=== PATIENT | female | born 1975 ===

== ENCOUNTER 2017-03-17 18:37 | Emergency (ER) | payer SELFPAY ==
--- NOTE | 2017-03-17 19:23 | C.PDOC ---
History Of Present Illness A 41 y/o female c/o abdominal pain, nausea, and vomiting that has been worsening over the last 2 days. Pt notes 1 episode of loose stool but denies fever, chills, vaginal bleeding or discharge, hematuria, dysuria, or any other complaints. Time Seen by Provider: 03/17/17 19:22 Chief Complaint (Nursing): Abdominal Pain History Per: Patient History/Exam Limitations: no limitations Onset/Duration Of Symptoms: Days Current Symptoms Are (Timing): Still Present Severity: Mild Pain Scale Rating Of: 4 Location Of Pain/Discomfort: Epigastric Radiation Of Pain To:: None Quality Of Discomfort: Dull, Cramping Associated Symptoms: Diarrhea. denies: Fever, Chills Exacerbating Factors: None Alleviating Factors: None Last Bowel Movement: Today Recent travel outside of the [place]: No Additional History Per: Patient Abnormal Vaginal Bleeding: No Past Medical History Reviewed: Historical Data, Nursing Documentation, Vital Signs Vital Signs: Last Vital Signs Temp 97.6 F 03/17/17 18:39 Pulse 64 03/17/17 22:15 Resp 16 03/17/17 22:15 BP 117/75 03/17/17 22:15 Pulse Ox 97 03/17/17 22:15 - Medical History PMH: Gastritis Family History: States: No Known Family Hx - Social History Hx Alcohol Use: No Hx Substance Use: No - Immunization History Hx Tetanus Toxoid Vaccination: No Hx Influenza Vaccination: No Hx Pneumococcal Vaccination: No Review Of Systems Constitutional: Negative for: Fever, Chills ENT: Negative for: Throat Pain Cardiovascular: Negative for: Chest Pain Respiratory: Negative for: Shortness of Breath Gastrointestinal: Positive for: Nausea, Vomiting, Abdominal Pain, Diarrhea Genitourinary: Negative for: Dysuria, Hematuria, Vaginal Discharge, Vaginal Bleeding Musculoskeletal: Negative for: Back Pain Skin: Negative for: Rash, Lesions, Jaundice Neurological: Negative for: Weakness Psych: Negative for: Anxiety Physical Exam - Physical Exam Appears: Non-toxic Skin: Warm, Dry Head: Normacephalic Eye(s): bilateral: Normal Inspection Oral Mucosa: Moist Chest: Symmetrical Cardiovascular: Rhythm Regular Respiratory: No Rales, No Rhonchi, No Wheezing Gastrointestinal/Abdominal: Soft, Tenderness (Mid epigastric tenderness), No Distention, No Guarding, No Rebound Back: No CVA Tenderness Extremity: Normal ROM Extremity: Bilateral: Normal Color And Temperature Neurological/Psych: Oriented x3, Normal Speech, Normal Cognition Gait: Steady ED Course And Treatment - Laboratory Results Result Diagrams: 03/17/17 19:51 03/17/17 19:51 O2 Sat by Pulse Oximetry: 98 (RA) Pulse Ox Interpretation: Normal Reevaluation Time: 23:14 Reassessment Condition: Improved Disposition Counseled Patient/Family Regarding: Studies Performed, Diagnosis, Need For Followup - Disposition Referrals: [facility] [Outside] Disposition: HOME/ ROUTINE Disposition Time: 19:22 Condition: FAIR Prescriptions: Naproxen [Naprosyn] 1 tab PO BID PRN #25 tab PRN Reason: Pain Instructions: Abdominal Pain (ED), Ovarian Cyst (ED) Print Language: UZBEK - Clinical Impression Clinical Impression: Abdominal pain, Ovarian cyst - Scribe Statement The provider has reviewed the documentation as recorded by the Scribe Vidya hancock All medical record entries made by the Scribe were at my direction and personally dictated by me. I have reviewed the chart and agree that the record accurately reflects my personal performance of the history, physical exam, medical decision making, and the department course for this patient. I have also personally directed, reviewed, and agree with the discharge instructions and disposition.
[2017-03-17] MEDS ORDERED: Sodium Chloride 0.9% 1,000 ML IV ONE (19:33)
[2017-03-17] MEDS ORDERED: Sodium Chloride 0.9% 1,000 ML ONE (19:42)
[2017-03-17 19:51] LABS: RBC URINE 2 /hpf (0-3); URINE BACTERIA RARE (<OCC); URINE BILIRUBIN NEGATIVE (NEGATIVE); URINE BLOOD NEGATIVE (NEGATIVE); URINE COLOR Yellow (YELLOW); URINE GLUCOSE (UA) NORMAL (Normal); URINE KETONE 1+ mg/dL (NEGATIVE); URINE LEUKOCYTE ESTERASE NEG Leu/uL (Negative); URINE PROTEIN NEGATIVE (NEGATIVE); URINE UROBILINOGEN NORMAL mg/dL (0.2-1.0); WBC URINE 1 /hpf (0-5)
[2017-03-17 20:05] LABS: BASO % 0.2 % (0.0-2.0); EOS # 0.1 K/uL (0.0-0.7); MONO # 0.8 K/uL (0.0-0.8)
[2017-03-17 20:11] LABS: EOS % 1.1 % (0.0-4.0); HEMATOCRIT 43.1 % (34.0-47.0); LYMPH # 1.4 K/uL (1.0-4.3); LYMPH % 15.9 % (20.0-40.0); MEAN CELL VOLUME 85.2 fL (81.0-99.0); MEAN CORPUSCULAR HEMOGLOBIN 28.2 pg (27.0-31.0); MEAN CORPUSCULAR HGB CONC 33.1 g/dL (33.0-37.0); MEAN PLATELET VOLUME 9.4 fL (7.2-11.7); MONO % 8.4 % (0.0-10.0); RED CELL DISTRIBUTION WIDTH 13.6 % (11.5-14.5); WHITE BLOOD COUNT 9.1 K/uL (4.8-10.8)
[2017-03-17 20:13] LABS: CHLORIDE 103 mmol/L (98-107)
[2017-03-17 20:14] LABS: POTASSIUM 3.5 mmol/L (3.6-5.2); SODIUM 137 mmol/L (132-148)
[2017-03-17 20:16] LABS: ALKALINE PHOSPHATASE 85 U/L (38-126); AST/SGOT 31 U/L (14-36); BILIRUBIN,TOTAL 0.6 mg/dL (0.2-1.3); BLOOD UREA NITROGEN 17 mg/dL (7-17); CARBON DIOXIDE 19 mmol/L (22-30); GFR AFRICAN-AMERICAN > 60; TOTAL PROTEIN 7.9 g/dL (6.3-8.3)
[2017-03-17 20:17] LABS: ALT/SGPT 44 U/L (9-52); CALCIUM 9.5 mg/dl (8.6-10.4); GLUCOSE,RANDOM 101 mg/dL (65-105)
[2017-03-17] MEDS ORDERED: Iodixanol 320 mg/ml 150 ml Bottle IV ONE (21:33)
[2017-03-17 23:31] VITALS: BP 120/74; PULSE 72; RESP 18; TEMP 98.1; O2SAT 99
--- NOTE | 2017-03-18 07:52 | CT ---
PROCEDURE: CT Abdomen and Pelvis with intravenous contrast HISTORY: mid epigastric , right upper quadrant pain COMPARISON: None. TECHNIQUE: Multiple contiguous axial images were performed through the abdomen and pelvis with intravenous contrast. Subsequently, sagittal and coronal reformatted images were obtained. Radiation dose: Total exam DLP = 491 mGy-cm. This CT exam was performed using one or more of the following dose reduction techniques: Automated exposure control, adjustment of the mA and/or kV according to patient size, and/or use of iterative reconstruction technique. FINDINGS: LOWER THORAX: Unremarkable. LIVER: Fatty infiltration of the liver. GALLBLADDER AND BILE DUCTS: Unremarkable. PANCREAS: Unremarkable. No gross lesion or ductal dilatation. SPLEEN: Unremarkable. ADRENALS: Unremarkable. No mass. KIDNEYS AND URETERS: Unremarkable. No hydronephrosis. No solid mass. VASCULATURE: Unremarkable. No aortic aneurysm. BOWEL: Stomach is distended with ingested material. Radiopaque tablets in the stomach. Mid and distal small bowel are mildly distended with fluid and air. Terminal ileum is distended with fluid. Air-fluid levels in the colon. APPENDIX: Unremarkable. Normal appendix. PERITONEUM: Unremarkable. No free fluid. No free air. LYMPH NODES: Unremarkable. No enlarged lymph nodes. BLADDER: Unremarkable. REPRODUCTIVE: Mild prominence of the adnexa with cysts. Suggestion of a corpus luteal/complex cyst in the right ovary. Correlation with pelvic ultrasound may be helpful. BONES: Degenerative changes in the spine with L5 spondylolisthesis. Posterior L5-S1 disc space narrowing and disc bulging. OTHER FINDINGS: Small fat containing umbilical hernia. IMPRESSION: Fatty infiltration of the liver. Bilateral adnexal cysts. Correlation with pelvic ultrasound may be helpful. Fluid and air throughout the bowel suggesting ileus and possible gastroenteritis. No evidence of gross obstruction. Clinical correlation. Additional findings as above. These findings were preliminarily reported at 10:39 p.m. on 03/17/[address] Kemi Hicks from [facility].
== END 2017-03-17 23:31 | disposition home or self-care (01) ==
LOC: C.ER 18:37
DX: N83.201 Unspecified ovarian cyst, right side (principal); R10.13 Epigastric pain
CPT/HCPCS: 74177; 80053; 81001; 83690; 84703; 85025; 85610; 85730; 96374; 96375; 99284; J2270; J2405; J7040; Q9965